=== PATIENT | male | born 1935 | race Caucasian/White ===

== ENCOUNTER 2017-10-08 10:51 | Outpatient (CLI) | payer MEDICARE, OTHER | END 2017-10-08 10:52 | disposition critical access hospital (66) | LOC: EMS 10:51 | PROVIDERS: ATTEND Surgery | DX: I46.9 Cardiac arrest, cause unspecified (principal) | CPT/HCPCS: A0425; A0433 ==

== ENCOUNTER 2017-10-08 11:09 | Emergency (ER) | payer MEDICARE, OTHER ==
--- NOTE | 2017-10-08 11:21 | ED Physician Documentation ---
PD HPI CPR - Stated complaint Stated Complaint: CPR - Chief complaint Chief Complaint: Neuro - History obtained from History obtained from: EMS - History of Present Illness Preceding symptoms: Unknown Witnessed: Arrest not witnesssed Bystander CPR: No bystander CPR EMS findings: Asystole Treatment SEISMOLOGY TECHNICAL OFFICER: CPR, Defibrillated ( x2), Epi (5 mg) - Additional information Additional information: The patient is an 82-year-old male who was last seen in his normal state of health at 9 AM when he took his nephew to [employer]. When his nephew came out of the [place] he found the patient unresponsive in his car. 911 was called, and paramedics initial evaluation found the patient asystolic. They initiated resuscitative efforts, including CPR, intubation, and administered epinephrine 1 mg 5. They also delivered two defibrillization shocks, although the indication for destabilization is not clear based on the persistent asystole on rhythm strip. The patient's past medical history is unknown. He is visiting here from [place] , and planned to go fishing with a alfredo later in the day. Review of Systems Unable to obtain: Unresponsive, Intubated PD PAST MEDICAL HISTORY - Past Medical History Other Past Medical History: Unknown - Present Medications Home Medications: Ambulatory Orders Medication Instructions Recorded Confirmed Pantoprazole [Protonix] 10/08/17 Tamsulosin HCl [Flomax] 10/08/17 oxyCODONE/ACET 5/325 [Percocet 5 10/08/17 mg/325 mg] - Allergies Allergies/Adverse Reactions: Allergies Allergy/AdvReac Type Severity Reaction Status Date / Time Unable to Assess Allergy Verified 10/08/17 11:12 - Social History Additional Social History: Visiting here from [place]. PD ED PE NORMAL - Vitals Vital signs reviewed: Yes (Asystole on awake overnight monitor) - General General: Other (CPR in progress.) - HEENT HEENT: Other (Pupils fixed and dilated.) - Cardiac Cardiac: Other (Asystolic) - Respiratory Respiratory: Other (Ventilation by [id number] tube. Breath sounds clear bilaterally.) - Abdomen Abdomen: Soft - Derm Derm: No rash, Other (Cool to touch.) - Extremities Extremities: No deformity, No edema - Neuro Neuro: Other (No response) Eye Opening: None Motor: None Verbal: None GCS Score: 3 Results - Vitals Vitals: Vital Signs - 24 hr 10/08/17 11:10 Heart Rate 0 L Respiratory 0 L Rate PD MEDICAL DECISION MAKING - ED course Complexity details: considered differential, d/w family ED course: The patient had an unwitnessed arrest and had undergone 45 minutes of CPR prior to arrival in the emergency department. His rhythm was asystole during that entire time, despite resuscitative efforts. Upon arrival in the emergency department. Bedside ultrasound was performed, revealing no cardiac activity. He was pronounced at 11:14 AM. I discussed his with his by telephone, and with his nephew, who is present in the emergency department. - Sepsis Event Vital Signs: Vital Signs - 24 hr 10/08/17 11:10 Heart Rate 0 L Respiratory 0 L Rate Departure - Departure Disposition: 20 Clinical Impression: Cardiac asystole Discharge Date/Time: 10/08/17 14:00
== END 2017-10-08 14:00 | disposition expired ==
LOC: ED 11:09
DX: I46.9 Cardiac arrest, cause unspecified (principal)
CPT/HCPCS: 92950; 99283; 99285